=== PATIENT | male | born 1960 | race Caucasian/White ===

== ENCOUNTER 2017-07-27 15:12 | Inpatient (IN) | payer OTHER ==
[~2017-07-27] VITALS: Ht 167.6 cm; Wt 66.2 kg
[~2017-07-27 15:12] MED LIST: AMLO5TAB7 PO; CALC0.253 PO; CLON0.1T PO; COLC0.6T67 PO; LOSA100T15 PO; METO100T14 PO; PRAV40TA3 PO
--- NOTE | 2017-07-27 15:15 | NUR ---
BIB [facility] FROM HOME,C/O CHEST PAIN, NTG X 3 AND ASA 162 GIVEN DAY SPA MANAGER. NAD NOTED, VSS, RESP EVEN AND UNLABORED, PT WAS PUT ON MONITOR, WAITING FOR MD ZEPEDA
[2017-07-27] MEDS ORDERED: IV NS 0.9% 1,000 ML BAG IV ONE (15:30)
[2017-07-27 15:34] LABS: HEMATOCRIT 27 % (39-51); HEMOGLOBIN 9.1 g/dL (13.5-17.5); MEAN CORPUSCULAR HGB CONC 34 g/dl (31.0-36.0); MEAN CORPUSCULAR VOLUME 85 fL (80-96); PLATELET COUNT (AUTO) 429 /CMM (150-450); RDW COEFFICIENT OF VARIATION 16.9 (11.5-15.0); RED BLOOD CELL COUNT(AUTO) 3.15 MIL/uL (4.5-6.0); WHITE BLOOD COUNT (AUTO) 7.5 K/uL (4.3-11.0)
[2017-07-27 15:57] LABS: CALCIUM, SERUM 7.3 mg/dL (8.5-10.1); CARBON DIOXIDE 11 mmol/L (21-32); CHLORIDE 107 mmol/L (98-107); CREATININE 6.6 mg/dL (0.6-1.3); GLUCOSE 119 mg/dL (74-106); POTASSIUM 3.9 mmol/L (3.5-5.1); SODIUM SERUM 140 mmol/L (136-145)
[2017-07-27 15:59] LABS: EOSINOPHILS % (MANUAL) 2 % (0-4); LYMPHOCYTES % (MANUAL) 32 % (16-48); MONOCYTES % (MANUAL) 4 % (0-11.0); NEUTROPHILS % (MANUAL) 62 (42-76)
[2017-07-27 16:01] LABS: TROPONIN I < 0.017 ng/mL (0.00-0.056)
[2017-07-27 16:09] LABS: ALBUMIN 3.3 g/dL (3.4-5.0); BILIRUBIN,TOTAL 0.2 mg/dL (0.2-1.0); TOTAL PROTEIN, SERUM 7.9 g/dL (6.4-8.2)
[2017-07-27 16:20] LABS: UREA NITROGEN, BLOOD 89 mg/dL (7-18)
--- NOTE | 2017-07-27 16:39 | NUR ---
TO [id number]
--- NOTE | 2017-07-27 16:40 | NUR ---
CALLED ADMITTING DEPARTMENT SPOKE TO REBEKAH, HE STATED THE PATIENT HAS MEDI-GAMALIEL AND IS GOOD TO BE ADMITTED TO OUR TECHNICAL WRITER AND EDITOR [facility]OSPITAL[facility].
[2017-07-27] MEDS ORDERED: IV LR 1000 ML 1,000 ML IV ONE (17:00)
[2017-07-27] MEDS ORDERED: DOCU250C14 PO (17:06)
[2017-07-27] MEDS ORDERED: LORA0.5T PO (17:06)
[2017-07-27] MEDS ORDERED: ERGO500014 PO (17:06)
[2017-07-27] MEDS ORDERED: CYAN100096 PO (17:06)
[2017-07-27] MEDS ORDERED: HYDR-4077 PO (17:06)
[2017-07-27] MEDS ORDERED: FERR325T23 PO (17:06)
[2017-07-27] MEDS ORDERED: TERA5CAP4 PO (17:06)
[2017-07-27] MEDS ORDERED: ASPI-1152 PO (17:06)
[2017-07-27] MEDS ORDERED: LABE100T5 PO (17:06)
[2017-07-27 17:30] VITALS: BP 142/90
[2017-07-27 18:00] VITALS: BP 140/90
[2017-07-27] MEDS ORDERED: ZOLPIDEM TARTRATE 5 MG TABLET PO PRN (18:00)
[2017-07-27] MEDS ORDERED: DOCUSATE SODIUM 250 MG CAPSULE PO PRN (18:00)
[2017-07-27] MEDS ORDERED: ONDANSETRON HCL/PF 4 MG/2 ML VIAL IVP PRN (18:00)
[2017-07-27] MEDS ORDERED: Z GUARD REMEDY 2 OZ OINT TP PRN (18:00)
[2017-07-27] MEDS ORDERED: ACETAMINOPHEN 325 MG TABLET PO PRN (18:00)
[2017-07-27] MEDS ORDERED: MAGNESIUM HYDROXIDE 30 ML UDC PO PRN (18:00)
[2017-07-27] MEDS ORDERED: MAG HYDROX/AL HYDROX/SIMETH 30 ML UDC PO PRN (18:00)
--- NOTE | 2017-07-27 18:15 | NUR ---
RECEIVED PATIENT FROM ER VIA GURNEY. PATIENT IN STABLE CONDITION, A/O X3 UKRAINIAN SPEAKING, AMBULATORY. ON ROOM AIR, SPO2 98%. NO ACUTE DISTRESS, NO SOB. COMPLAINED OF PAIN IN THE ABDOMEN 8/10 PAIN SCALE, ACHING, WILL ADMINISTER PAIN MEDICATION ORDERED. ON TELEMONITORING SR 86. VS WNL, IV SITE INTACT AND PATENT. BED IN LOW/LOCKED POSITION, SIDERAILS UPX2, CALL LIGHT IN REACH. WILL ENDORSE TO NIGHT RN FOR ADMISSION.
[2017-07-27] MEDS ORDERED: MORPHINE SULFATE INJ 4 MG/ML DISP.SYRIN IV PRN (18:30)
[2017-07-27 20:00] VITALS: BP 169/105
[2017-07-27] MEDS: LORAZEPAM 0.5 MG TABLET PO SCH (21:44)
[2017-07-27] MEDS: HYDROCODONE/APAP 5/325MG 1 EACH TABLET PO PRN (21:44)
[2017-07-27] MEDS ORDERED: TERAZOSIN HCL 5 MG CAPSULE PO SCH (22:00)
[2017-07-27] MEDS: TERAZOSIN HCL 1 MG CAPSULE PO SCH (22:08)
[2017-07-28] VITALS: BP 134/93
[2017-07-28 04:00] VITALS: BP 150/89
--- NOTE | 2017-07-28 06:38 | NUR ---
EMPLOYEE BENEFITS COORDINATOR NOTES AWAKE & RESPONSIVE. NOT IN ANY DISTRESS. NO SOB NOTED. DENIES ANY PAIN OR DISCOMFORT AT THIS TIME. ON TELE SR @ 85 WITH IV-HL PATENT & INTACT. MONITORED ACCORDINGLY. CALL LIGHT WITHIN REACH. BED IN LOWEST POSITION. SR UP X 2 FOR SAFETY. WILL ENDORSE TO NEXT SHIFT.
[2017-07-28 07:07] LABS: BASOPHILS % (AUTO) 0.5 % (0.0-2.0); EOSINOPHILS % (AUTO) 3.3 % (0.0-6.0); HEMATOCRIT 23 % (39-51); HEMOGLOBIN 7.9 g/dL (13.5-17.5); LYMPHOCYTES # (AUTO) 0.9 /CMM (0.8-4.8); LYMPHOCYTES % (AUTO) 16.3 % (20.0-44.0); MEAN CORPUSCULAR HGB CONC 34 g/dl (31.0-36.0); MEAN CORPUSCULAR VOLUME 89 fL (80-96); MONOCYTES # (AUTO) 0.3 /CMM (0.1-1.30); MONOCYTES % (AUTO) 5.2 % (2.0-12.0); NEUTROPHILS # (AUTO) 4.3 /CMM (1.8-8.9); NEUTROPHILS % (AUTO) 74.7 % (43.0-81.0); PLATELET COUNT (AUTO) 281 /CMM (150-450); RDW COEFFICIENT OF VARIATION 17.7 (11.5-15.0); WHITE BLOOD COUNT (AUTO) 5.8 K/uL (4.3-11.0)
--- NOTE | 2017-07-28 07:22 | NUR ---
FERMENTING CELLARS RECEIVER NOTES PATIENT RECEIVED RESTING INSIDE ROOM. SLEEPING INTERMITTENTLY, VERBALLY RESPONSIVE AND RESPONDS TO VERBAL AND TACTILE STIMULI. PATIENT ALERT AND ORIENTED X 4. ABLE TO MAKE NEEDS KNOWN AND FOLLOW INSTRUCTIONS. PATIENT BREATHING EVEN AND UNLABORED. NO SOB OR ACUTE DISTRESS NOTED. REMINDED NPO STATUS AND PATIENT VERBALIZED UNDERSTANDING. IV SITE INTACT AND PATENT, NO SWELLING OR BLEEDING NOTED. WILL CONTINUE TO MONITOR. BED LOCKED AND IN LOW POSITION. BILATERAL UPPER SIDE RAILS UP AND LOCKED. CALL LIGHT WITHIN EASY REACH
[2017-07-28 07:24] LABS: THYROID STIMULATING HORMONE 1.451 uIU/mL (0.358-3.74)
[2017-07-28 07:28] LABS: ALBUMIN 2.9 g/dL (3.4-5.0); BILIRUBIN,TOTAL 0.5 mg/dL (0.2-1.0); CALCIUM, SERUM 7.4 mg/dL (8.5-10.1); MAGNESIUM 1.7 mg/dL (1.8-2.4); PHOSPHORUS 5.9 mg/dL (2.5-4.9); POTASSIUM 3.8 mmol/L (3.5-5.1); TOTAL PROTEIN, SERUM 6.7 g/dL (6.4-8.2)
[2017-07-28 08:12] VITALS: BP 142/84
[2017-07-28] MEDS: LABETALOL HCL (100MG) 100 MG TABLET PO SCH ×2 (08:26→17:08)
[2017-07-28] MEDS: CLONIDINE HCL 0.1 MG TABLET PO SCH ×2 (08:26→17:08)
[2017-07-28] MEDS: FERROUS SULFATE (325 MG) 325 MG/TAB TABLET PO SCH ×2 (08:26→17:08)
[2017-07-28] MEDS: THIAMINE HCL 100 MG TABLET PO SCH (08:26)
[2017-07-28] MEDS: hydrALAZINE HCL 50 MG TABLET PO SCH ×2 (08:27→17:07)
[2017-07-28] MEDS: ASPIRIN EC 81 MG TABLET.DR PO SCH (08:27)
[2017-07-28] MEDS ORDERED: Folic acid 1 MG in IV D5W 50 ML IV SCH (09:00)
--- NOTE | 2017-07-28 09:04 | NUR ---
MS RN NOTES PATIENT SEEN AND EXAMINED BY DR. GOMEZ WITH NEW ORDERS TO DC PREVIOUS NPO DIET AND CHANGE TO CLEAR LIQUID DIET. PATIENT AWARE AND VERBALIZED UNDERSTANDING. FNS MADE AWARE, WILL CONTINUE TO MONITOR
[2017-07-28] MEDS: IV 1/2NS 1000 ML 1,000 ML IV PRN (12:59)
[2017-07-28] MEDS ORDERED: EPOETIN ALFA (20,000 UNIT) 20,000 UNIT/ML VIAL SQ ONE (13:30)
[2017-07-28 14:14] LABS: IRON, SERUM 123 ug/dl (50-175); TOTAL IRON BINDING CAPACITY 194 ug/dl (250-450)
--- NOTE | 2017-07-28 18:57 | NUR ---
MS RN NOTES PATIENT RESTING INSIDE ROOM. SLEEPING INTERMITTENTLY. AWAKE, ALERT AND ORIENTED, VERBALLY RESPONSIVE AND RESPONDS TO VERBAL AND TACTILE STIMULI. ABLE TO MAKE NEEDS KNOWN AND FOLLOW SIMPLE ISNTRUCTIONS. BREATHING EVEN AND UNLABORED. NO SOB OR ACUTE DISTRESS NOTED AT THIS TIME. PATIENT AFEBRILE, SKIN DRY AND WARM TO TOUCH. NO CHANGES IN LOC NOTED AT THIS TIME. WILL ENDORSE TO INCOMING SHIFT FOR HYACINTH. BED LOCKED AND IN LOW POSITION. BILATERAL UPPER SIDE RAILS UP AND LOCKED. CALL LIGHT WITHIN EASY REACH
--- NOTE | 2017-07-28 19:25 | NUR ---
MS/RN NOTES RECEIVED PT. LYING IN BED. PT. IS AWAKE, ALERT AND ORIENTED X3. BREATHING EVEN AND UNLABORED ON ROOM AIR. NO SOB, RESPIRATORY DISTRESS OR COMPLAINTS OF PAIN NOTED AT THIS TIME. PT. WITH LEFT HAND 20 GAUGE IV SALINE LOCK PRESENT, PATENT AND INTACT. PT. REFUSING IV FLUIDS AT THIS TIME. BED LOCKED AND IN LOWEST POSITION SIDE RAILS UP X2, CALL LIGHT WITHIN REACH, WILL CONTINUE TO MONITOR.
[2017-07-28 20:00] VITALS: BP_SYST 124; BP_SYST 129; BP_DIAS 88
[2017-07-28] MEDS: LORAZEPAM 0.5 MG TABLET PO SCH (21:38)
[2017-07-28] MEDS: TERAZOSIN HCL 1 MG CAPSULE PO SCH (21:39)
--- NOTE | 2017-07-29 06:13 | NUR ---
MS/RN NOTES PT. IS LYING IN BED RESTING. BREATHING EVEN AND UNLABORED ON ROOM AIR. NO SOB, RESPIRATORY DISTRESS OR COMPLAINTS OF PAIN NOTED AT THIS TIME. PT. WITH LEFT HAND 20 GAUGE IV SALINE LOCK PRESENT, PATENT AND INTACT. PT. CONTINUES TO REFUSE IV FLUIDS AT THIS TIME. ALL PT. NEEDS MET. BED LOCKED AND IN LOWEST POSITION SIDE RAILS UP X2, CALL LIGHT WITHIN REACH, WILL ENDORSE TO DAYSHIFT NURSE FOR CONTINUITY OF CARE.
--- NOTE | 2017-07-29 07:35 | NUR ---
MS RN OPENING NOTES RECEIVED PT FROM NIGHTSHIFT NURSE IN STABLE CONDITION. PT IS A/O X4. NO SOB OR ACUTE SIGNS OF DISTRESS NOTED. BREATHING IS EVEN AND UNLABORED. ON RA AND SATING WELL. HE DENIES ANY PAIN AT THIS TIME. 20G IV NOTED TO LEFT HAND. PT REFUSING IV FLUIDS AT THIS TIME. IV NOTED TO BE PATENT AND INTACT. NO REDNESS OR SIGNS OF INFILTRATION NOTED. BED IN LOW LOCKED POSITION, SIDE RAILS UP X2, CALL LIGHT WITHIN REACH. WILL CONTINUE TO MONITOR
[2017-07-29 08:00] VITALS: BP 123/83
--- NOTE | 2017-07-29 08:16 | NUR ---
MS RN NOTES: MD ORDERS DR. GOMEZ IN ROOM WITH PT. GAVE VERBAL ORDERS TO ADVANCE HIS DIET, GET A STAT BMP AND LIPASE. ORDERS IMPUTED. DIETARY CALLED FOR NEW TRAY. WILL AWAIT LAB RESULTS
[2017-07-29] MEDS: THIAMINE HCL 100 MG TABLET PO SCH (08:33)
[2017-07-29] MEDS: FOLIC ACID 1 MG TABLET PO SCH (08:34)
[2017-07-29] MEDS: ASPIRIN EC 81 MG TABLET.DR PO SCH (08:34)
[2017-07-29] MEDS: CLONIDINE HCL 0.1 MG TABLET PO SCH ×2 (08:34→16:53)
[2017-07-29] MEDS: FERROUS SULFATE (325 MG) 325 MG/TAB TABLET PO SCH ×2 (08:34→16:52)
[2017-07-29 08:59] LABS: CALCIUM, SERUM 7.6 mg/dL (8.5-10.1); CREATININE 5.5 mg/dL (0.6-1.3); POTASSIUM 3.4 mmol/L (3.5-5.1)
[2017-07-29] MEDS: LABETALOL HCL (100MG) 100 MG TABLET PO SCH ×2 (09:00→16:53)
[2017-07-29] MEDS: hydrALAZINE HCL 50 MG TABLET PO SCH ×2 (09:00→17:00)
[2017-07-29 16:00] VITALS: BP 130/80
[2017-07-29] MEDS: HYDROCODONE/APAP 5/325MG 1 EACH TABLET PO PRN (16:52)
--- NOTE | 2017-07-29 18:24 | NUR ---
MS RN CLOSING NOTES PT REMAINS STABLE. ALL NEEDS WERE MET DURING SHIFT AND ORDERS CARRIED OUT ACCORDINGLY. ALL DUE MEDS. GIVEN. PT ABLE TO TOLERATE RENAL DIET WELL. NO COMPLAINTS OF N/V THROUGHOUT SHIFT. HE DENIES ANY ABDOMINAL PAIN THROUGHOUT THE SHIFT WELL. VITALS REMAIN STABLE. SAFETY MEASURES REMAIN IN PLACE. WILL ENDORSE TO NIGHTSHIFT NURSE FOR HYACINTH
--- NOTE | 2017-07-29 19:37 | NUR ---
MS/RN OPENING NOTES PATIENT IN BED, AWAKE, ALERT X3,ABLE TO PARTICIPATE WITH CARE, CALM AND COOPERATIVE, IV SITE ON LEFT HAND, W/ NOTED S/S OF INFILTRATION AND REMOVE, TOLERATED WELL, APPLIED PRESSURE TO PREVENT FROM BLEEDING, PATIENT IV INSERTED ON RIGHT HAND GAUGE 24. DENIES PAIN, RESPIRATIONS EVEN AND UNLABORED, PROVIDED JUICE TO DRINK, CALL LIGHTS WITHIN REACH, RESPIRATIONS EVEN AND UNLABORED. SKIN WARM TO TOUCH, RECEIVED REPORT FROM AM RN FOR HYACINTH.
[2017-07-29 20:00] VITALS: BP 119/76
[2017-07-29] MEDS: LORAZEPAM 0.5 MG TABLET PO SCH (21:06)
[2017-07-29] MEDS: TERAZOSIN HCL 1 MG CAPSULE PO SCH (21:09)
[2017-07-30] MEDS: IV 1/2NS 1000 ML 1,000 ML IV PRN (02:15)
--- NOTE | 2017-07-30 05:34 | NUR ---
MD NEIGHBORHOOD CONSERVATION OFFICER INFORMED REGARDING POTASSIUM 3.4, TO FOLLOW UP WITH AVERY SANDOVAL REPORTED
--- NOTE | 2017-07-30 06:24 | NUR ---
3142-2 MS/RN NOTES PATIENT IN BED, ABLE TO SLEEP DURING THE NIGHT, ABLE TO WALK WITH WALKER, IV HYDRATION , ABLE TO PARTICIPATE WITH CARE, PROVIDED/OFFERED SNACKS AND FLUIDS, NO PAIN REPORTED, NO GUARDING OR GRIMACE. CALL LIGHTS WITHIN REACH, IV, REINSERTED ON RIGHT ARM, WILL CONTINUE TO MONITOR.
--- NOTE | 2017-07-30 07:10 | NUR ---
ms rn initial notes received patient in bed, asleep, head of bed elevated, no SOB or distress noted, on room air and tolerated well. IV intact and patent, IVF on hold per patient request. No facial grimace noted. Alert and oriented x 3, verbally responsive and able to make needs known as endorsed by shift production associate RN. Call light with in patient reach, will continue to monitor accordingly.
[2017-07-30 08:00] VITALS: BP 116/75
[2017-07-30] MEDS: THIAMINE HCL 100 MG TABLET PO SCH (08:36)
[2017-07-30] MEDS: ASPIRIN EC 81 MG TABLET.DR PO SCH (08:36)
[2017-07-30] MEDS: FERROUS SULFATE (325 MG) 325 MG/TAB TABLET PO SCH (08:36)
[2017-07-30] MEDS: FOLIC ACID 1 MG TABLET PO SCH (08:36)
[2017-07-30] MEDS: LABETALOL HCL (100MG) 100 MG TABLET PO SCH (08:37)
[2017-07-30 08:38] VITALS: BP 116/75
[2017-07-30] MEDS: hydrALAZINE HCL 50 MG TABLET PO SCH (08:38)
[2017-07-30] MEDS: CLONIDINE HCL 0.1 MG TABLET PO SCH (08:38)
--- NOTE | 2017-07-30 08:39 | NUR ---
ms rn notes Held clonidine per MD ordered due to patient is taking hydralazine and labetalol at the same time and bp was 116/75. All orders carried out and noted.
--- NOTE | 2017-07-30 13:30 | NUR ---
ms brick burner head notes Discharge instructions given to patient and able to understand instructions. Signed discharge paper and belonging list. No items missing. Patient is alert and oriented x 4, verbally responsive and able to make needs known. IV discontinued and pressured applied to prevent bleeding. Flu is out of season, and pneumonia not given due to patient refusal, explained the risk and benefits x 3 and still refused. Taxi voucher given to patient. Patient left the hospital in stable condition, no complaint of pain or discomfort at this time, accompanied by RIBBON CLEANER assigned. Skin is intact, no pictures needed. MD and charge nurse made aware.
[2017-07-31] MEDS ORDERED: ERGOCALCIFEROL (VITAMIN D 2) 50,000 UNIT CAPSULE PO SCH (09:00)
== END 2017-07-30 13:30 | disposition home or self-care (01) | DRG 282 ==
LOC: ER 15:13 → TELE 17:19 → MED 07-28 08:37
PROVIDERS: ADMIT Internal Medicine; ATTEND Internal Medicine
DX: K85.90 Acute pancreatitis without necrosis or infection, unspecified (principal); N17.0 Acute kidney failure with tubular necrosis; Z79.82 Long term (current) use of aspirin; Z79.899 Other long term (current) drug therapy; D63.8 Anemia in other chronic diseases classified elsewhere; F10.129 Alcohol abuse with intoxication, unspecified; N18.6 End stage renal disease; I12.0 Hypertensive chronic kidney disease with stage 5 chronic kidney disease or end stage renal disease; N18.5 Chronic kidney disease, stage 5
CPT/HCPCS: 36415; 71045-TC; 80048-TC; 80053-TC; 80061-TC; 80076-TC; 83540-TC; 83690-TC; 83735-TC; 84100-TC; 84443-TC; 84484-TC; 85025-TC; 87081-TC; A4606; G0480; J0885; J2270; J3490; J7030; J7060; J7120; Z7610